=== PATIENT | female | born 1955 | race Caucasian/White ===

== ENCOUNTER → 2016-12-05 | Day surgery (SDC) | payer OTHER ==
[~2016-12-05] VITALS: Ht 163.8 cm; Wt 57.0 kg
[~2016-12-05] MED LIST: BUPIVACAINE HCL PF 0.5% 30 ML VIAL ONE; CEPH-460 PO; CETI10CA3 PO; CHLORHEXIDINE GLUCONATE 2 % 1 PACK (2 CLOTHS) TOPICAL PRN; FAMOTIDINE 20 MG/2 ML VIAL ONE; INSULIN HUMAN REGULAR 1,000 UNITS/10 ML VIAL SQ PRN; LACTATED RINGER'S 1000 ML IV PRN; LIDOCAINE HCL 2% 50 ML VIAL ONE; METOPROLOL TARTRATE 25 MG TAB PO PRN; MIDAZOLAM HCL 2 MG/2 ML VIAL ONE; NEOMYCIN/POLYMYXIN 1 ML G.U. IRRIGANT ONE; NORC5TAB PO; POVIDONE IODINE 5% (ANTISEPSIS KIT) 4 APPLICATIONS EACH NARE PRN; PROPOFOL 200 MG/20 ML AMP IV ONE; SODIUM CHLORID 0.9% 500 ML IV PRN; ceFAZolin 1,000 MG/NS 100 ML IV PRN
[2016-12-05 09:41] VITALS: BP 133/84; PULSE 69; RESP 16; TEMP 98; O2SAT 99
[2016-12-05 09:48] LABS: HEMATOCRIT 44.4 % (35.0-46.0); MEAN CELL VOLUME 90.5 FL (80.0-100.0); MEAN CORPUSCULAR HEMOGLOBIN 29.3 PG (27.0-34.0); MEAN CORPUSCULAR HGB CONC 32.3 % (32.0-36.0); PLATELET COUNT 264 TH/MM3 (150-450); RED BLOOD COUNT 4.91 MIL/MM3 (4.00-5.30); RED CELL DISTRIBUTION WIDTH 12.9 % (11.6-17.2); REVIEW FLAG FINAL; WHITE BLOOD COUNT 6.4 TH/MM3 (4.0-11.0)
[2016-12-05 10:54] VITALS: BP 111/75; PULSE 97; RESP 18; TEMP 97.6; O2SAT 100
--- NOTE | 2016-12-05 13:05 | EKG ---
Date Performed: 12/05/2016 Time Performed: 09:51:08 PTAGE: 61 years EKG: SINUS BRADYCARDIA BORDERLINE ECG NO PREVIOUS TRACING DOCTOR: Carlos Zuniga Interpretating Date/Time 12/05/2016 13:03:27
--- NOTE | 2016-12-05 13:35 | MP ---
cc: CARL REYES III, M.D. DATE OF SURGERY 12/05/2016 PREOPERATIVE DIAGNOSIS Left middle finger mucous cyst. PROCEDURE Left middle finger mucous cyst excision. SURGEON Carl Rosenberg III, MD PROCEDURE The patient was brought to the operating room, placed on the operating room table. After the correct site and side of surgery were verified members of each team in the room multiple times including the patient and myself, and after adequate preoperative time-out was performed to everyone's satisfaction, and after adequate IV sedation was achieved the left upper extremity was prepped and draped in traditional sterile surgical fashion. A 50/50 mixture of 2% plain lidocaine and 0.5 some plain Marcaine was infiltrated in the skin and subcutaneous tissue at the base of the middle finger on the radial side of the finger. The two smallest fingers from a size 6 sterile glove were used as the finger tourniquet. A C-shaped incision dorsally radially at the DIP joint was made within the extension crease of the PIP joint, carried down through the skin and subcutaneous tissue. Blunt dissection was performed and the extensor tendon was identified. The mucous cyst was also identified and it spontaneously decompressed. The attenuated extensor tendon on the radial side of the finger was then debrided and traced down to the DIP joint where the large dorsal osteophyte was then debrided. There were no other anatomic abnormalities identified. Ulnarly more than two-thirds of the extensor tendon was still intact in negative form. The tissues were then lightly abraded with a curette to induce scar tissue formation. Thorough irrigation of the joint was performed to ensure no bony fragments had fallen in. Passive range of motion was smooth and unimpeded. The skin edges were then reapproximated using running 5-0 nylon sutures. The hand and arm were thoroughly cleansed and dried, Betadine Adaptic dressings was applied on top of the wound, followed by a gentle circumferentially and compressive dressing. The finger tourniquet was released and the finger became immediately soft, pink, warm and had brisk capillary refill of less than 2 seconds. The patient awakened from anesthesia and transported to the Post-Anesthesia Care Unit awake and in stable condition at the end of the case. Sponge, needle and instrument counts were correct at the end of the case as reported by the nurses in the room. MD DENIS Seo III/SSB /11:10 AM /1:23 PM
== END | disposition home or self-care (01) ==
LOC: PHSDC 08:29
PROVIDERS: ATTEND Orthopaedic Surgery Hand Surgery
DX: M25.842 Other specified joint disorders, left hand (principal); R94.31 Abnormal electrocardiogram [ECG] [EKG]
CPT/HCPCS: 01810; 26160; 36415; 85027; 93005; J2250